=== PATIENT | female | born 1975 | race Caucasian/White ===

== ENCOUNTER 2019-02-13 07:12 | Emergency (ER) | payer OTHER ==
[2019-02-13 07:33] VITALS: BP 116/63
--- NOTE | 2019-02-13 07:51 | ED ---
Throat Pain/Nasal Congestion - HPI Summary HPI Summary: 43 yr old female with the complaint of sore throat, mild fatigue, nausea. Onset over the past day. Her son was diagnosed with strep throat by swab test four days ago. The patient has not taken her temperature. She has no drooling , no stridor. Symptoms are moderate. - History of Current Complaint Chief Complaint: UCRespiratory Time Seen by Provider: 02/13/19 07:29 - Allergies/Home Medications Allergies/Adverse Reactions: Allergies Allergy/AdvReac Type Severity Reaction Status Date / Time No Known Allergies Allergy Verified 02/13/19 07:27 PMH/Surg Hx/FS Hx/Imm Hx Infectious Disease History: No Infectious Disease History: Denies: Traveled Outside the [place] in Last 30 Days - Family History Known Family History: Positive: None - Social History Occupation: Employed Full-time Lives: With Family Alcohol Use: Occasionally Substance Use Type: Reports: None Smoking Status (MU): Never Smoked Tobacco Review of Systems Constitutional: Negative Positive: Sore Throat All Other Systems Reviewed And Are Negative: Yes Physical Exam Triage Information Reviewed: Yes Vital Signs On Initial Exam: Initial Vitals Temp Pulse Resp BP Pulse Ox 97.9 F 82 16 116/63 100 02/13/19 07:28 02/13/19 07:28 02/13/19 07:28 02/13/19 07:28 02/13/19 07:28 Vital Signs Reviewed: Yes Appearance: Positive: Well-Appearing, No Pain Distress Skin: Positive: Warm, Skin Color Reflects Adequate Perfusion Head/Face: Positive: Normal Head/Face Inspection Eyes: Positive: EOMI, MARTINE ENT: Positive: Pharyngeal erythema. Negative: Nasal congestion, Nasal drainage , Tonsillar swelling, Tonsillar exudate Neck: Positive: Nontender Respiratory/Lung Sounds: Positive: Clear to Auscultation, Breath Sounds Present Cardiovascular: Positive: RRR. Negative: Murmur Abdomen Description: Negative: Distended Musculoskeletal: Positive: Strength/ROM Intact Neurological: Positive: Sensory/Motor Intact, Alert, Oriented to Person Place, Time, CN Intact II-III, Normal Gait, Speech Normal Psychiatric: Positive: Normal - [place] Coma Scale Best Eye Response: 4 - Spontaneous Best Motor Response: 6 - Obeys Commands Best Verbal Response: 5 - Oriented Coma Scale Total: 15 Diagnostics - Vital Signs Vital Signs Temp Pulse Resp BP Pulse Ox 02/13/19 07:28 97.9 F 82 16 116/63 100 - Laboratory Lab Results: Lab Results 02/13/19 Range/Units 07:37 Group A Strep Rapid Negative (Negative) Lab Statement: Any lab studies that have been ordered have been reviewed, and results considered in the medical decision making process. EENT Course/Dx - Course Course Of Treatment: 43 yr old with a family member with strep pharyngitis. Will cover her with amox. Her symptoms are limited to sore throat. - Diagnoses Provider Diagnoses: Pharyngitis Discharge - Sign-Out/Discharge Documenting (check all that apply): Patient Departure All imaging exams completed and their final reports reviewed: No Studies - Discharge Plan Condition: Good Disposition: HOME Prescriptions: Amoxicillin PO (*) [Amoxicillin 500 MG CAP*] 500 mg PO TID #30 cap Patient Education Materials: Pharyngitis (ED) Referrals: Vishnu Stephens MD [Primary Care Provider] - 5 Days - Billing Disposition and Condition Condition: GOOD Disposition: Home
== END 2019-02-13 07:52 | disposition home or self-care (01) ==
LOC: UCCORT 07:12
DX: J02.9 Acute pharyngitis, unspecified (principal)
CPT/HCPCS: 87651; 99212; G0463

== ENCOUNTER 2023-02-24 13:33 | Observation (INO) ==
[2023-02-24] MEDS ORDERED: Magnesium Sulfate 2 gm BAG 2 GM/50 ML BAG IVPB ONE (13:44)
[2023-02-24 14:18] LABS: ABS Basophils 0.1 10^3/uL (0.0-0.1); ABS Eosinophils 0.1 10^3/uL (0.0-0.5); ABS Lymphocytes 1.4 10^3/uL (1.0-4.8); ABS Monocytes 0.9 10^3/uL (0.0-0.9); ABS Neutrophils 6.9 10^3/uL (1.5-7.6); ABS Nucleated RBC 0.02 10^3/ul; Eosinophil % 0.8 %; Hematocrit 41.9 % (35-45); Hemoglobin 14.2 g/dL (11.5-14.3); Mean Corpuscular Hemoglobin 30.2 pg (27-33); Mean Platelet Volume 9.7 fL (7.5-11.2); Nucleated Red Blood Cells % 0.2 /100 WBC (0.0-0.4); Platelet Count 254 10^3/uL (150-450); Red Blood Count 4.71 10^6/uL (3.63-4.92); Red Cell Distribution Width 13.5 % (12-17); White Blood Count 9.5 10^3/uL (3.8-11.8)
[2023-02-24 14:54] LABS: TSH Ultra Thyroid Stim Horm 3.06 mcIU/mL (0.34-5.60)
[2023-02-24] MEDS ORDERED: Sulfur Hexaflouride MICROSPHR 25 MG VIAL ONE (14:56)
[2023-02-24 15:09] LABS: Albumin 4.3 g/dL (3.2-5.2); Albumin/Globulin Ratio 1.2 (1-3); Calcium 9.4 mg/dL (8.6-10.3); Creatinine, Serum 1.17 mg/dL (0.51-0.95); Globulin 3.7 g/dL (2-4); Total Bilirubin 0.6 mg/dL (0.2-1.0); eGFR CKD-EPI 57.6 (>60)
[2023-02-24 15:56] LABS: High Sensitivity Troponin 1 Hr 278 pg/mL (<15)
[2023-02-24 16:27] LABS: Magnesium 2.4 mg/dL (1.9-2.7)
[2023-02-24 16:29] LABS: Potassium 3.8 mmol/L (3.5-5.0)
[2023-02-24] MEDS ORDERED: Iodixanol (CONTRAST) 320 MG/ML 100 ML SDV IV ONE (17:19)
[2023-02-25 06:12] LABS: ABS Eosinophils 0.1 10^3/uL (0.0-0.5); ABS Lymphocytes 1.8 10^3/uL (1.0-4.8); ABS Monocytes 0.9 10^3/uL (0.0-0.9); ABS Neutrophils 4.5 10^3/uL (1.5-7.6); ABS Nucleated RBC 0.01 10^3/ul; Eosinophil % 1.2 %; Hemoglobin 13.1 g/dL (11.5-14.3); Lymphocyte % 24.3 %; Mean Corpuscular Hemoglobin 30.8 pg (27-33); Mean Corpuscular Hgb Conc 34.6 g/dL (31-36); Mean Platelet Volume 9.3 fL (7.5-11.2); Nucleated Red Blood Cells % 0.1 /100 WBC (0.0-0.4); Platelet Count 235 10^3/uL (150-450); Red Blood Count 4.26 10^6/uL (3.63-4.92); Red Cell Distribution Width 13.6 % (12-17); White Blood Count 7.2 10^3/uL (3.8-11.8)
[2023-02-25 06:41] LABS: Calcium 9.2 mg/dL (8.6-10.3); Creatinine, Serum 0.93 mg/dL (0.51-0.95); Magnesium 2.2 mg/dL (1.9-2.7); Potassium 3.6 mmol/L (3.5-5.0); eGFR CKD-EPI 75.8 (>60)
[2023-02-25] MEDS ORDERED: Potassium Chlor 20 meq TAB.ER PO ONE (09:12)
[2023-02-25] MEDS ORDERED: Adenosine 3 MG/ML 2 ml VIAL (6 mg) ONE ×3 (09:29)
[2023-02-25 10:07] LABS: HDL Cholesterol 60.5 mg/dL
[2023-02-25 14:16] VITALS: BP 121/92
== END 2023-02-25 16:00 | disposition home or self-care (01) ==
LOC: EDHOLD 13:33 → ED 13:33 → SUATTDRO 18:41 → MEDTELE 19:44
PROVIDERS: ADMIT Student in an Organized Health Care Education/Training Program; ATTEND Internal Medicine